=== PATIENT | male | born 1990 | race Asian ===

== ENCOUNTER 2016-08-18 16:59 | Emergency (ER) | payer OTHER ==
[~2016-08-18] VITALS: Ht 179 cm; Wt 87.3 kg
[2016-08-18 17:06] VITALS: BP 126/74; TEMP 99.6
[2016-08-18] MEDS ORDERED: LEVAQUIN 5500 MG/TA1 PO (17:37)
[2016-08-18] MEDS ORDERED: TYLENOL W/COD1 UDTAB PO (17:37)
[2016-08-18 18:57] VITALS: PULSE 105
== END 2016-08-18 18:57 | disposition home or self-care (01) ==
LOC: COL.ER 16:59
DX: L05.01 Pilonidal cyst with abscess (principal)